=== PATIENT | female | born 1970 | race Caucasian/White ===

== ENCOUNTER 2016-09-15 12:50 | Emergency (ER) | payer OTHER ==
[2016-09-15] MEDS ORDERED: ONDANSETRON 4 MG TAB.RAPDIS PO ONE (13:46)
[2016-09-15] MEDS ORDERED: NORMAL SALINE 1000 ML 1,000 ML IV ONE (13:47)
--- NOTE | 2016-09-15 13:49 | ER Document Report ---
ED Medical Screen (RME) - General Chief Complaint: Pelvic Pain Stated Complaint: POST OP PELVIC PAIN TRAVEL OUTSIDE OF THE [place] IN LAST 30 DAYS: No - HPI Patient complains to provider of: postop pain Notes: 09/15/16 13:47 Patient with a recent penectomy out of state possibly in [place] states that she lives in [place] currently living in her motor home here in [place] with postop pain No fevers no chills 09/15/16 13:48 Patient states severe pain patient states her doctors have told her to explain more when she is in pain. Patient having normal conversation in triage - Related Data Allergies/Adverse Reactions: No Known Allergies Allergy (Verified 09/15/16 12:54) Past Medical History Renal/ Medical History: Denies: Hx Peritoneal Dialysis Review of Systems - Review of Systems Gastrointestinal: Abdominal pain Physical Exam - Vital signs Vitals: Temp Pulse Resp BP Pulse Ox 98.4 F 97 19 136/93 H 100 09/15/16 12:56 09/15/16 12:56 09/15/16 12:56 09/15/16 12:56 09/15/16 12:56 - Cardiovascular Murmur: No - Abdominal Inspection: No: Normal - Abdominal KUMAR drains in place Distension: No distension Organomegaly: No organomegaly - Neurological Sensory: Normal - Skin Skin Temperature: Warm Skin Moisture: Dry Skin Color: Normal Course - Vital Signs Vital signs: Temp Pulse Resp BP Pulse Ox 98.4 F 97 19 136/93 H 100 09/15/16 12:56 09/15/16 12:56 09/15/16 12:56 09/15/16 12:56 09/15/16 12:56
[2016-09-15 14:15] LABS: APPEARANCE,URINE CLEAR; BILIRUBIN,URINE NEGATIVE (NEGATIVE); GLUCOSE, URINE NEGATIVE (NEGATIVE); KETONES,URINE NEGATIVE (NEGATIVE); LEUKOCYTE ESTERASE,URINE NEGATIVE (NEGATIVE); NITRITE,URINE NEGATIVE (NEGATIVE); PROTEIN,URINE NEGATIVE (NEGATIVE); URINE SPECIFIC GRAVITY 1.015; UROBILINOGEN,URINE NEGATIVE mg/dL (<2.0)
[2016-09-15 14:21] LABS: ABSOLUTE EOSINOPHILS # (AUTO) 0.1 10^3/uL (0.0-0.6); ABSOLUTE LYMPHOCYTES (AUTO) 1.5 10^3/uL (0.5-4.7); ABSOLUTE MONOCYTES (AUTO) 0.5 10^3/uL (0.1-1.4); ABSOLUTE NEUT (AUTO) 2.5 10^3/uL (1.7-8.2); BASOPHILS % (AUTO) 0.9 % (0-2); EOSINOPHILS % (AUTO) 1.2 % (0-6); HEMATOCRIT 37.6 % (36.0-47.0); HEMOGLOBIN 12.5 g/dL (12.0-15.5); HGB HCT DIFFERENCE -0.1; LYMPHOCYTES % (AUTO) 32.3 % (13-45); MEAN CORPUSCULAR HEMOGLOBIN 27.8 pg (27.0-33.4); MEAN CORPUSCULAR HGB CONC 33.3 g/dL (32.0-36.0); MEAN CORPUSCULAR VOLUME 84 fl (80-97); MONOCYTES % (AUTO) 10.1 % (3-13); RED CELL DISTRIBUTION WIDTH 13.7 % (11.5-14.0); SEGMENTED NEUTROPHILS % (AUTO) 55.5 % (42-78); WHITE BLOOD COUNT 4.6 10^3/uL (4.0-10.5)
[2016-09-15 14:31] LABS: ALANINE AMINOTRANSFERASE 35 U/L (9-52); ALBUMIN 4.2 g/dL (3.5-5.0); ALKALINE PHOSPHATASE 101 U/L (38-126); ANION GAP 10 (5-19); ASPARTATE AMINO TRANSFERASE 33 U/L (14-36); BILIRUBIN,DIRECT 0.1 mg/dL (0.0-0.4); BILIRUBIN,TOTAL 0.7 mg/dL (0.2-1.3); BLOOD UREA NITROGEN 9 mg/dL (7-20); CALCIUM 9.9 mg/dL (8.4-10.2); CARBON DIOXIDE 28 mmol/L (22-30); CHLORIDE 105 mmol/L (98-107); CREATININE RESULT 0.57 mg/dL (0.52-1.25); GLUCOSE 100 mg/dL (75-110); LIPASE 127.7 U/L (23-300); POTASSIUM 4.4 mmol/L (3.6-5.0); TOTAL PROTEIN 7.3 g/dL (6.3-8.2)
--- NOTE | 2016-09-15 17:00 | ER Document Report ---
ED GI/ - General Mode of Arrival: Ambulatory Information source: Patient TRAVEL OUTSIDE OF THE [place] IN LAST 30 DAYS: No - HPI Patient complains to provider of: Abdominal pain Onset: Other - 4 days ago Timing/Duration: Worse Location: RUQ, RLQ, Suprapubic Associated symptoms: Other - see notes above <TANNER MADDOX - Last Filed: 09/15/16 17:56> <DESTIN RUBIO - Last Filed: 09/15/16 19:43> - General Chief Complaint: Pelvic Pain Stated Complaint: POST OP PELVIC PAIN Notes: 46 year old female presents to the ED complaining of suprapubic and right side abdominal pain that has worsened over the past 4 days. Patient states that she had an panniculectomy 3 weeks ago (at [facility] in [place]) and is now having drainage from her KUMAR drains. Patient states that at first she thought she was having the abdominal pain due to the bands that she was wearing post-op, but realized that was not the source of the pain when removing one of the bands. Patient packed the KUMAR drain area with wash rags and started to notice drainage on the rag and underwear. (TANNER MADDOX) - Related Data Allergies/Adverse Reactions: No Known Allergies Allergy (Verified 09/15/16 12:54) Past Medical History - General Information source: Patient - Social History Smoking Status: Unknown if Ever Smoked Family History: Reviewed & Not Pertinent Patient has suicidal ideation: No Patient has homicidal ideation: No Renal/ Medical History: Denies: Hx Peritoneal Dialysis Past Surgical History: Reports: Hx Abdominal Surgery - Panniculectomy; August 2016, Hx Gynecologic Surgery - Ovarian Tumor removal <TANNER MADDOX - Last Filed: 09/15/16 17:56> Review of Systems - Review of Systems Constitutional: No symptoms reported EENT: No symptoms reported Cardiovascular: No symptoms reported Respiratory: No symptoms reported Gastrointestinal: See HPI, Abdominal pain Genitourinary: No symptoms reported Female Genitourinary: No symptoms reported Musculoskeletal: No symptoms reported Skin: No symptoms reported Hematologic/Lymphatic: No symptoms reported Neurological/Psychological: No symptoms reported -: Yes All other systems reviewed and negative <TANNER MADDOX - Last Filed: 09/15/16 17:56> Course - Laboratory Result Diagrams: 09/15/16 13:50 09/15/16 13:50 - Consults Dr. Winter Time consulted: 17:56 <TANNER MADDOX - Last Filed: 09/15/16 17:56> - Laboratory Result Diagrams: 09/15/16 13:50 09/15/16 13:50 - Diagnostic Test Radiology reviewed: Image reviewed, Reports reviewed <DESTIN RUBIO - Last Filed: 09/15/16 19:43> - Re-evaluation Re-evalutation: 09/15/16 19:41 Patient has chronic appendix inflammation. No evidence for appendicitis. Patient does have an abdominal wall seroma. Surgery consult as the patient is out of state. Blood work within normal limits. Likely no infection but would recommend a dose of vancomycin. Have discussed at length with the patient doing a CT guided drainage here as an outpatient for going back to see her surgeon. The patient would prefer to go home and drive to [place] to see her surgeon. Patient has pain medication at home. Patient is requesting covering of her drainage site. Abdomen is very nonsurgical in nature. Vitals are stable. Patient has been afebrile throughout her course in the emergency department. She is stable at this time for discharge home. (DESTIN RUBIO) - Vital Signs Vital signs: Temp Pulse Resp BP Pulse Ox 97.8 F 94 16 117/70 99 09/15/16 17:33 09/15/16 17:33 09/15/16 17:33 09/15/16 17:33 09/15/16 17:33 - Consults Dr. Winter Reason for consultation: 09/15/16 17:56 Patient was discussed with Dr. Winter and he agrees to see the patient's surgical site. (TANNER MADDOX) Discharge <TANNER MADDOX - Last Filed: 09/15/16 17:56> <DESTIN RUBIO - Last Filed: 09/15/16 19:43> - Discharge Clinical Impression: Abdominal wall seroma Qualifiers: Encounter type: initial encounter Qualified Code(s): T88.8XXA - Other specified complications of surgical and medical care, not elsewhere classified, initial encounter; T79.2XXA - Traumatic secondary and recurrent hemorrhage and seroma, initial encounter Condition: Stable Disposition: HOME, SELF-CARE Additional Instructions: Please follow-up with your surgeon. Call in the morning to discuss management of this seroma. Please take pain medication as prescribed. Please return if you have any worsening or concerning symptoms. Please make sure that you take a copy of your CT and read with you. Davy Attestation: 09/15/16 19:43 I personally performed the services described in the documentation, reviewed and edited the documentation which was dictated to the scribe in my presence, and it accurately records my words and actions. (DESTIN RUBIO) Scribe Documentation - Scribe Written by Davy:: Davy Garcia, 09/15/2016 1835 acting as scribe for :: Simeon <TANNER MADDOX - Last Filed: 09/15/16 17:56>
[2016-09-15] MEDS ORDERED: KETOROLAC TROMETHAMINE INJ/PF 30 MG/1 ML SDV IV ONE (17:44)
[2016-09-15] MEDS ORDERED: MORPHINE SULFATE 10 MG/ML INJ IV ONE ×2 (17:45→19:39)
[2016-09-15] MEDS ORDERED: VANCOMYCIN HCL INJ 1000 MG VIAL IV ONE (19:23)
[2016-09-15] MEDS ORDERED: ONDANSETRON HCL INJ/PF 4 MG/2 ML SDV IV ONE (20:22)
[2016-09-15 21:52] LABS: PROTHROMBIN TIME 13.1 SEC (11.4-15.4)
[2016-09-15 21:53] LABS: PARTIAL THROMBOPLASTIN TIME 27.5 SEC (23.5-35.8)
[2016-09-15] MEDS ORDERED: DIPHENHYDRAMINE HCL 25 MG CAPSULE PO ONE (23:06)
--- NOTE | 2016-09-15 23:08 | CONSULTATION REPORT E ---
Consultation Report NAME: GISEL WHITTEN : 1970 AGE: 46Y TO: YAHIR FARAH M.D. FROM: Elaine SÁNCHEZ, Requesting Physician DATE: 09/15/2016 REASON FOR CONSULTATION: The patient with supraumbilical collection on CAT scan. HISTORY OF PRESENT ILLNESS: This is a 46-year-old female who had a panniculectomy done about 3 weeks ago. The past few days has been complaining of pains along the upper abdomen and getting worse. She then came to the emergency room where a CAT scan of the abdomen was performed, which showed a 3 cm x 9 cm supraumbilical seroma formation. PAST HISTORY: History of large ovarian mass removed 3 years ago. She then had incisional hernia repair done and then panniculectomy done 3 weeks ago. She still has 2 drainage catheters. The right side has been draining about 50 mL a day and the left 5 mL a day. The plastic surgeon who did her surgery would like to leave the drains until it comes down to about no more than 30 mL a day. REVIEW OF SYSTEMS: As in HPI. No nausea, vomiting, diarrhea, constipation. No dysuria. Has pains on the abdomen, especially on bending over. The rest of the systems unremarkable. ALLERGIES: No known. PHYSICAL EXAMINATION: GENERAL: Well-developed, well-nourished 46-year-old female, alert and oriented, complaining of abdominal pain. NECK: Supple. No thyromegaly. LUNGS: Clear. HEART: Regular sinus rhythm. ABDOMEN: Soft with tenderness at the supraumbilical area. She has 2 drains, 1 draining about 50 mL and on the other side about 5 mL. The exit sites of the drains mildly red, but minimal tenderness primarily on the left side. LABORATORY DATA: Her white count is normal and developed fever, though she claims she would have off and on temperature of 99. She used to be a nurse here at [employer] and she is very familiar with medical evaluation and terms. IMPRESSION: Supraumbilical seroma, status post panniculectomy. RECOMMENDATIONS: In view of the patient's white count being normal and no fever, it appears that this collection is just likely a seroma rather than an abscess. This could probably be drained by Interventional Radiology. Unfortunately, the Interventional Radiologist is unable to do this procedure tomorrow according to the ER physician and the patient agreed to go see her plastic surgeon in [place] tomorrow. She might benefit from a dose of vancomycin, although this will hopefully prevent for any infection that may develop. At any rate, I spoke to the patient at length and discussed her situation and they agreed, both patient and her , for the patient to go to [place]. DICTATING PHYSICIAN: YAHIR FARAH M.D. [id number] PHY#: [id number] ID: [id number] JOB#: [id number] ACCT: [id number] cc:YAHIR FARAH M.D. >
[2016-09-15 23:45] VITALS: BP 112/62
== END 2016-09-15 23:07 | disposition home or self-care (01) ==
LOC: ER 12:50
DX: T88.8XXA Other specified complications of surgical and medical care, not elsewhere classified, initial encounter (principal); T79.2XXA Traumatic secondary and recurrent hemorrhage and seroma, initial encounter; R10.2 Pelvic and perineal pain; R10.9 Unspecified abdominal pain
CPT/HCPCS: 96376; 99284; 96374; 96375; 36415; 83690; 85025; 85610; 85730; 80053; 81001; 83605; 74177; S0119; J2270; J2405; J7030; J3370